=== PATIENT | female | born 1980 | race Caucasian/White ===

== ENCOUNTER 2017-07-04 15:46 | Emergency (ER) | payer BC, OTHER ==
[2017-07-04 15:52] VITALS: BP 106/71; BMI 27.4
[2017-07-04] MEDS ORDERED: MORPHINE SULFATE INJ 4 MG IVP ONE (16:19)
[2017-07-04] MEDS ORDERED: MORPHINE SULFATE INJ 4 MG ONE (16:22)
--- NOTE | 2017-07-04 16:31 | RAD ---
HISTORY: Chest pain Study: Single view chest Comparison:None Findings: No infiltrate, effusion or pneumothorax identified. The cardiac and mediastinal contours are within n ormal limits. The soft tissues are unremarkable. IMPRESSION: 1. No acute cardiopulmonary abnormality. Reported By:
[2017-07-04 16:33] LABS: BASOPHILS % (AUTO) 0.2 % (0.2-1.0); EOSINOPHILS % (AUTO) 0.3 % (0.9-2.9); HEMATOCRIT 39.8 % (36.0-47.0); HEMOGLOBIN 13.7 g/dL (12.0-16.0); LYMPHOCYTES # (AUTO) 0.5 X10^3/uL (1.3-2.9); MEAN CORPUSCULAR HEMOGLOBIN 32.9 pg (27.0-34.0); MEAN CORPUSCULAR HGB CONC 34.4 g/dL (33.0-35.0); MEAN CORPUSCULAR VOLUME 95.5 fL (80.0-100.0); MEAN PLATELET VOLUME 9.1 fL (7.4-11.0); MONOCYTES # (AUTO) 0.3 x10^3/uL (0.3-0.8); MONOCYTES % (AUTO) 3.1 % (0.0-13.0); NEUTROPHILS # (AUTO) 8.2 x10^3/uL (2.2-4.8); NEUTROPHILS % (AUTO) 91.4 % (42.0-75.0); PLATELET COUNT 202 X10^3/uL (150.0-450.0); RED BLOOD COUNT 4.17 X10^6/uL (3.5-5.4)
[2017-07-04] MEDS ORDERED: NORFLEX INJ IVP ONE (16:41)
--- NOTE | 2017-07-04 16:41 | DR.GENAD ---
HPI - PCP Primary Care Physician: nicholas - Complaint/Symptoms Chief Complaint Doctors Comments: History as stated. Patient also states that she has been taking medications as prescribed with out much success in treatment. She has had an scope w/o any pathology. Chief Complaint:: pt stated that today she started having chest spasms. she has a hx of espogus spasm. she took gi coctail,protonix, and 12 tums, levisn - Source History Provided: Patient - Mode of Arrival Mode of Arrival: Ambulatory - Timing Onset of Chief Complaint: 07/04/17 PMH - PMH Past Medical History: No Past Surgical History: Yes Surgical History: Cholecystectomy - Family History History of Family Medical Conditions: No - Social History Does patient currently use any type of tobacco product: Yes Have you used tobacco products in the last 12 months: Yes Type of Tobacco Use: Cigarettes How many years tobacco product used: 15 Does any household member use tobacco: No Alcohol Use: None Do you use any recreational Drugs:: No Lives With: Family Lives Where: Home - infectious screening In the last 2 months have you had wt loss of >10#?: NO Have you had fever, night sweats or hemotysis?: No Have you traveled outside the country in the last 6 months?: No Isolation: Standard ROS - Review of Systems Eyes: No Symptoms Reported ENTM: No Symptoms Reported Respiratoy: No Symptoms Reported Cardiovascular: No Symptoms Reported Gastrointestinal/Abdominal: No Symptoms Reported Genitourinary: No Symptoms Reported Neurological: No Symptoms Reported Musculoskeletal: No Symptoms Reported Integumentary: No Symptoms Reported Hematologic/Lymphatic: No Symptoms Reported Endocrine: No Symptoms Reported Psychiatric: No Symptoms Reported All Other Systems: Reviewed and Negative PE - Vital Signs Vitals: Temperature 98.6 F Pulse Rate 89 Respiratory Rate 16 Blood Pressure 106/71 O2 Sat by Pulse Oximetry 99 - General Limitations: No Limitations General Appearance: Alert, In No Apparent Distress - Head Head Exam: Normal Inspection, Atraumatic - Eyes Eye exam: Normal Appearance, PERRL, EOMI - ENT ENT Exam: Normal Exam External Ear Exam: Normal External Inspection TM/Canal Exam: Bilateral Normal Nose Exam: Normal Nose Exam Mouth Exam: Normal Inspection Throat Exam: Normal Inspection - Neck Neck Exam: Normal Inspection, Full ROM, Other (epigastric pain) - Chest Chest Inspection: Normal Inspection - Respiratory Respiratory Exam: Normal Lung Sounds Bilat Respiratory Exam: Bilateral Clear to Auscultation - Cardiovascular Cardiovascular Exam: Regular Rate, Normal Rhythm - Abdominal Exam Abdominal Exam: Normal Inspection, Normal Bowel Sounds Abdominal Tenderness: negative: RUQ, RLQ, LUQ, LLQ, Epigastrium, Suprapubic, Diffuse, Mild, Moderate, Severe, Other - Extremities Extremities Exam: Normal Inspection - Back Back Exam: Normal Inspection - Neurologic Neurological Exam: Alert, Oriented X3, CN II-XII Intact - Skin Skin Exam: Warm, Dry, Intact Course - Reevaluation 1st: Improved ROR - Labs Reviewed Result Diagrams: 07/04/17 16:19 07/04/17 16:19 Laboratory: WBC 9.0 X10^3/uL (3.6-10.0) 07/04/17 16: RBC 4.17 X10^6/uL (3.5-5.4) 07/04/17 16:19 Hgb 13.7 g/dL (12.0-16.0) 07/04/17 16: Hct 39.8 % (36.0-47.0) 07/04/17 16:19 MCV 95.5 fL (80.0-100.0) 07/04/17 16:19 MCH 32.9 pg (27.0-34.0) 07/04/17 16: MCHC 34.4 g/dL (33.0-35.0) 07/04/17 16:19 RDW 12.0 % (11.6-16.5) 07/04/17 16:19 Plt Count 202 X10^3/uL (150.0-450.0) 07/04/17 16:19 Plt Count Comment Adequate (ADEQUATE) 07/04/17 16:19 MPV 9.1 fL (7.4-11.0) 07/04/17 16:19 Neut % (Auto) 91.4 % (42.0-75.0) H 07/04/17 16:19 Lymph % (Auto) 5.0 % (21.0-51.0) L 07/04/17 16:19 Smyth % (Auto) 3.1 % (0.0-13.0) 07/04/17 16:19 Eos % (Auto) 0.3 % (0.9-2.9) L 07/04/17 16:19 Baso % (Auto) 0.2 % (0.2-1.0) 07/04/17 16:19 Neut # (Auto) 8.2 x10^3/uL (2.2-4.8) H 07/04/17 16:19 Lymph # (Auto) 0.5 X10^3/uL (1.3-2.9) L 07/04/17 16:19 Smyth # (Auto) 0.3 x10^3/uL (0.3-0.8) 07/04/17 16:19 Eos # (Auto) 0.0 x10^3/uL (0.0-0.2) 07/04/17 16:19 Baso # (Auto) 0.0 X10^3/uL (0.0-0.1) 07/04/17 16:19 Absolute Nucleated RBC 0.0 /100WBC 07/04/17 16:19 Total Counted 100 07/04/17 16:19 Neutrophils % (Manual) 84 % (39-76) H 07/04/17 16:19 Band Neutrophils % 2 % (0-10) 07/04/17 16:19 Lymphocytes % (Manual) 8 % (13-43) L 07/04/17 16:19 Monocytes % (Manual) 6 % (4-9) 07/04/17 16:19 Plt Morphology Comment Normal (NORMAL) 07/04/17 16:19 RBC Morphology Normal (NORMAL) 07/04/17 16:19 INR Target Range - 07/04/17 16:19 INR 1.06 (0.8-1.3) 07/04/17 16:19 APTT 33.5 SECONDS (22.9-36.5) 07/04/17 16:19 PTT Comment - 07/04/17 16:19 Sodium 137 mmol/L (136-145) 07/04/17 16:19 Corrected Sodium 137 mmol/L (136-145) 07/04/17 16:19 Potassium 3.6 mmol/L (3.5-5.1) 07/04/17 16:19 Chloride 102 mmol/L (98-107) 07/04/17 16:19 Carbon Dioxide 27.1 mmol/L (21-32) 07/04/17 16:19 BUN 12 mg/dL (7-18) 07/04/17 16:19 Creatinine 0.77 mg/dL (0.55-1.02) 07/04/17 16:19 Est GFR (MDRD) Af Amer > 60 (>60) 07/04/17 16:19 Est GFR (MDRD) Non-Af > 60 (>60) 07/04/17 16:19 Glucose 116 mg/dL (65-99) H 07/04/17 16:19 Calcium 8.0 mg/dL (8.5-10.1) L 07/04/17 16:19 Corrected Calcium TNP 07/04/17 16:19 Magnesium 1.4 mg/dL (1.7-2.9) L 07/04/17 16:19 Total Bilirubin 0.30 mg/dL (0.2-1.0) 07/04/17 16:19 AST 253 Units/L (15-37) H 07/04/17 16:19 ALT 166 Units/L (12-78) H 07/04/17 16:19 Alkaline Phosphatase 77 Units/L (46-116) 07/04/17 16:19 Creatine Kinase 41 Units/L (26-192) 07/04/17 16:19 CK-MB (CK-2) < 1.0 ng/mL (0-4.0) 07/04/17 16:19 CK/CKMB % Calc 2.4 % (<4) 07/04/17 16:19 Troponin I < 0.02 ng/mL (0-1.5) 07/04/17 16:19 Total Protein 7.0 g/dL (6.4-8.2) 07/04/17 16:19 Albumin 3.7 g/dL (3.4-5.0) 07/04/17 16:19 Globulin 3.3 g/dL (2.5-4.5) 07/04/17 16:19 Albumin/Globulin Ratio 1.1 Ratio (1.1-2.1) 07/04/17 16:19 H. pylori IgG Antibody Negative (NEGATIVE) 07/04/17 16:19 - XRAY XRAY Interpreted by: Radiologist (Chest: No acute cardiopulmonary pathology. CT Abd/pel:Lung bases are clear. L5-S1 posterior fusion hardware is present without acute complication. No aggressive osseous lesions are identified. The gallbladder is surgically absent. The liver, spleen,pancreas, adrenals and right kidney are unremarkable. The left kidney is normal apart from a tiny probable lower pole cyst. There is mild mural thickening of the duodenum. The remainder of the GI tract is without inflammation or obstruction. The appendix is normal. The IVC,abdominal aorta and urinary bladder are normal. A 2.4 cm left ovarian cyst is noted, likely physiologic. The uterus and right adnexa are grossly normal. There is traace free pelvic fluid, also likely physiologic. No significant free flowing ascites, free air or lymphadenopathy is identified. Impression: Mild duodenal wallthickening, suggestive for duodenitis. ) - Diagnosis Discharge Problem: Duodenitis - Discharge Plan Condition: Stable - Follow ups/Referrals Follow ups/Referrals: Jay Dallas [Primary Care Provider] - 3 days - Instructions
[2017-07-04 16:53] LABS: BAND NEUTROPHILS % 2 % (0-10)
[2017-07-04 16:54] LABS: PLATELET MORPHOLOGY COMMENT NORMAL (NORMAL)
[2017-07-04 17:01] LABS: BLOOD UREA NITROGEN 12 mg/dL (7-18); CARBON DIOXIDE 27.1 mmol/L (21-32); CHLORIDE 102 mmol/L (98-107); COR NA(FOR HYPERGLY) 137 mmol/L (136-145); CREATININE 0.77 mg/dL (0.55-1.02); SODIUM 137 mmol/L (136-145); TROPONIN I < 0.02 ng/mL (0-1.5); eGFR BLACK RACES > 60 (>60); eGFR NON BLACK RACES > 60 (>60)
[2017-07-04 17:05] LABS: ALANINE AMINOTRANSFERASE 166 Units/L (12-78); ALBUMIN 3.7 g/dL (3.4-5.0); ALKALINE PHOSPHATASE 77 Units/L (46-116); ASPARTATE AMINO TRANSFERASE 253 Units/L (15-37); CKMB % 2.4 % (<4); CREATINE KINASE 41 Units/L (26-192); CREATINE KINASE MB < 1.0 ng/mL (0-4.0); MAGNESIUM 1.4 mg/dL (1.7-2.9)
[2017-07-04] MEDS ORDERED: NORFLEX INJ ONE (17:21)
[2017-07-04] MEDS ORDERED: ZOFRAN INJ 4 MG VIAL IVP ONE (19:13)
[2017-07-04] MEDS ORDERED: ZOFRAN INJ 4 MG VIAL ONE (19:20)
[2017-07-04] MEDS ORDERED: NS 1000 ML 1,000 ML IV ONE (19:45)
[2017-07-04] MEDS ORDERED: NS 1000 ML 1,000 ML ONE (19:48)
[2017-07-04] MEDS ORDERED: NS 100 ML IV 100 ML IV ONE (21:11)
--- NOTE | 2017-07-04 22:03 | CT ---
CT abdomen and pelvis with contrast Indication: 'Patient stated that today she started having chest spasms. She has history of esophagus spasm. She took GI cocktail, Protonix and 12 Tums' Technique: Helical CT images of the abdomen and pelvis were obtained with IV contrast. Reformatted im ages in the coronal and sagittal planes were also generated for review. Comparison: None Findings: Lung bases are clear. L5-S1 posterior fusion hardware is present without acute complication . No aggressive osseous lesions are identified. The gallbladder is surgically absent. The liver, spleen, pancreas, adrenals and right kidney are unre markable. The left kidney is normal apart from a tiny probable lower pole cyst. There is mild mural thickening of the duodenum. The remainder of the GI tract is without inflammation or obstruction. The appendix is normal. The IVC, abdominal aorta and urinary bladder are normal. A 2 .4 cm left ovarian cyst is noted, likely physiologic. The uterus and right adnexa are grossly normal. There is trace free pelvic fluid, also likely physiologic. No significant free flowing ascites, free air or lymphadenopathy is identified. Impression: Mild duodenal wall thickening, suggestive for duodenitis. Correlation recommended. Otherwise, no additional significant abnormality to explain patient's symptoms. See above report for additional incidental findings. Reported By:
== END 2017-07-04 23:10 | disposition home or self-care (01) ==
LOC: ER 15:56
DX: K29.80 Duodenitis without bleeding (principal); R07.89 Other chest pain; R79.89 Other specified abnormal findings of blood chemistry
CPT/HCPCS: 36415; 71045; 74177; 80053; 82550; 82553; 83735; 84484; 85025; 85610; 85730; 86677; 93005; 93010; 96365; 96372; 96374; 96375; 99283; A4222; J2270; J2360; J2405